=== PATIENT | male | born 1960 | race Caucasian/White ===

== ENCOUNTER 2017-01-05 14:58 | Emergency (ER) | payer BC, MEDICARE ==
[~2017-01-05] VITALS: Ht 167.6 cm; Wt 166.8 kg
[~2017-01-05 14:58] MED LIST: AGGRENOX 200/251 CAP PO; ANUSOL-HC25 MG RE; ASPIRIN EC325 MG PO; ATENOLOL25 MG PO; AVODART0.5 MG OR; BENICAR HCT1 TA1 OR; BUPROPION100 MG PO; CELEBREX200 MG OR; CRESTOR20 MG PO; HYDROCHLOROT12.5 MG PO; LASIX 20 MG TAB20 MG PO; LASIX40 MG OR; LISINOPRIL20 MG PO; LORAZEPAM0.5 MG PO; PROAIR HFA IN; REQUIP0.25 MG OR; RISPERIDONE1 MG PO; SIMVASTATIN20 MG OR; SYMBICORT1 AE1 IN; UROXATRAL10 MG OR; VENLAFAXINE75 MG PO
[2017-01-05] MEDS ORDERED: BISACODYL5 MG PO (15:26)
[2017-01-05] MEDS ORDERED: D32000 UNIT PO (15:27)
[2017-01-05 15:35] LABS: HEMATOCRIT 38.9 % (39.0-50.0); HEMOGLOBIN 12.3 g/dl (14.0-18.0); IMMATURE GRANULOCYTES 0.7 % (0.0-1.0); MEAN CELL VOLUME 77.8 fL CALC (80.0-100.0); MEAN CORPUSCULAR HGB 24.6 pG CALC (26.0-32.0); MEAN CORPUSCULAR HGB CONC 31.6 g/L CALC (32.0-36.0); NEUT# 8.37 thou/uL (1.82-7.42); RED CELL DISTRI WIDTH 16.3 % (11.5-15.5)
[2017-01-05 15:51] LABS: ALBUMIN 4.3 g/dL (3.2-5.0); ALKALINE PHOSPHATASE 87 u/l (38-126); AMYLASE 54 u/l (30-110); ANION GAP 18 (6-22 (CALC)); BILIRUBIN, TOTAL 0.2 mg/dL (0.0-1.4); BUN 16 mg/dL (9-20); BUN/CREATININE RATIO 15 (12-20 (CALC)); CALCIUM 9.6 mg/dL (8.4-10.2); CARBON DIOXIDE 22 mmol/l (22-30); CHLORIDE 108 mmol/l (95-108); CREATININE 1.1 mg/dL (0.7-1.3); GFR > 60 ML/MIN (>=60 (CALC)); GFR FOR AFR.AMER. > 60 ML/MIN (>=60 (CALC)); GLUCOSE 125 mg/dL (75-110); LIPASE 185 u/l (23-300); POTASSIUM 3.9 mmol/l (3.5-5.1); SGOT/AST 27 u/l (17-59); SGPT/ALT 54 u/l (21-72); SODIUM 144 mmol/l (137-146); TOTAL PROTEIN 7.5 g/dL (6.3-8.2)
[2017-01-05 16:00] LABS: MYOGLOBIN 43 ng/mL (0 - 121)
[2017-01-05] MEDS ORDERED: LITHIUM CARB300 MG PO ×2 (16:31)
[2017-01-05] MEDS ORDERED: TRAZODONE50 MG PO (16:32)
[2017-01-05] MEDS ORDERED: LIPITOR20 M1 PO (16:36)
[2017-01-05] MEDS ORDERED: TERAZOSIN1 MG PO (16:36)
[2017-01-05] MEDS ORDERED: PANTOPRAZOLE SO40 MG PO (16:38)
[2017-01-05] MEDS ORDERED: FE TABS325 MG PO (16:39)
[2017-01-05] MEDS ORDERED: METFORMIN500 MG PO (16:39)
[2017-01-05] MEDS ORDERED: AMLODIPINE5 MG PO (16:40)
[2017-01-05] MEDS ORDERED: VESICARE5 M1 PO (16:41)
[2017-01-05] MEDS ORDERED: JANUVIA100 MG PO (16:42)
[2017-01-05] MEDS ORDERED: PLAVIX75 MG PO (16:45)
[2017-01-05 17:32] LABS: TSH, 3RD GENERATION 2.32 uIU/mL (0.47 - 4.68)
[2017-01-05 18:33] LABS: URINE BILIRUBIN - DIPSTICK NEGATIVE (NEGATIVE); URINE BLOOD DIPSTICK NEGATIVE (NEGATIVE); URINE COLOR YELLOW; URINE GLUCOSE - DIPSTICK NEGATIVE (NEGATIVE); URINE KETONE NEGATIVE (NEGATIVE); URINE LEUK ESTERASE NEGATIVE (NEGATIVE); URINE NITRITE - DIPSTICK NEGATIVE (Negative); URINE PROTEIN - DIPSTICK NEGATIVE (NEG-TRACE); URINE SPECIFIC GRAVITY >=1.030; URINE UROBILINOGEN - DIPSTICK 0.2 E.U./dL (0.2)
[2017-01-05 18:34] LABS: URINE CLARITY CLEAR
[2017-01-05 19:21] VITALS: BP 132/75
== END 2017-01-05 19:21 | disposition short-term general hospital (02) | DRG 69 ==
LOC: ED 14:58
PROVIDERS: Emergency Medicine
DX: G45.9 Transient cerebral ischemic attack, unspecified (principal); I10 Essential (primary) hypertension; R06.02 Shortness of breath; R07.9 Chest pain, unspecified; R60.9 Edema, unspecified

== ENCOUNTER 2017-02-26 18:21 | Emergency (ER) | payer BC, MEDICARE ==
[~2017-02-26] VITALS: Ht 167.6 cm; Wt 164.0 kg
[~2017-02-26 18:21] MED LIST changes: +AMLODIPINE5 MG PO; +BISACODYL5 MG PO; +D32000 UNIT PO; +FE TABS325 MG PO; +JANUVIA100 MG PO; +LIPITOR20 M1 PO; +LITHIUM CARB300 MG PO; +METFORMIN500 MG PO; +PANTOPRAZOLE SO40 MG PO; +PLAVIX75 MG PO; +TERAZOSIN1 MG PO; +TRAZODONE50 MG PO; +VESICARE5 M1 PO
[2017-02-26 19:07] LABS: INFLUENZA A NONE DETECTED (NONE DETECT); INFLUENZA B NONE DETECTED (NONE DETECT)
[2017-02-26] MEDS ORDERED: KEFLEX500 M1 PO (19:15)
[2017-02-26] MEDS ORDERED: ROBITUSSIN AC10 ML PO (19:15)
[2017-02-26 19:25] VITALS: BP 159/79
== END 2017-02-26 19:25 | disposition home or self-care (01) | DRG 153 ==
LOC: ED 18:21
PROVIDERS: Emergency Medicine
DX: J06.9 Acute upper respiratory infection, unspecified (principal); R05 Cough; R50.9 Fever, unspecified

== ENCOUNTER 2023-02-22 15:34 | Emergency (ER) | payer OTHER, MEDICARE ==
[~2023-02-22] VITALS: Ht 170.2 cm; Wt 176.0 kg
[2023-02-22] VITALS (8 sets, daily range): BP systolic 126–155; BP diastolic 71–92
[~2023-02-22 15:34] MED LIST changes: +KEFLEX500 M1 PO; +ROBITUSSIN AC10 ML PO
[2023-02-22 16:52] LABS: BASO% 0.2 % (0-3); EOS% 1.4 % (0-8); HEMATOCRIT 41.7 % (39.0-50.0); IMMATURE GRANULOCYTES 0.8 % (0.0-5.0); LYMPH% 23.3 % (15-41); MEAN CELL VOLUME 77.9 fL CALC (80.0-100.0); MEAN CORPUSCULAR HGB 24.3 pG CALC (26.0-32.0); MEAN CORPUSCULAR HGB CONC 31.2 g/dL CAL (32.0-36.0); MONO% 7.1 % (2-13); NEUT# 7.51 thou/uL (1.82-7.42); NEUT% 67.2 % (42-76); RED BLOOD COUNT 5.35 mill/uL (4.70-6.10); RED CELL DISTRI WIDTH 16.2 % (11.5-15.5)
[2023-02-22 17:10] LABS: ALBUMIN 4.3 g/dL (3.2-5.0); ALKALINE PHOSPHATASE 109 u/l (38-126); ANION GAP 14 (6-22 (CALC)); BUN 15 mg/dL (8-23); BUN/CREATININE RATIO 15 (12-20 (CALC)); CARBON DIOXIDE 25 mmol/l (22-30); CHLORIDE 105 mmol/l (95-108); GFR FOR AFR.AMER. > 60 ML/MIN (>=60 (CALC)); GFR OTHER RACES > 60 ML/MIN (>=60 (CALC)); POTASSIUM 3.5 mmol/l (3.5-5.1); SGOT/AST 39 u/l (19-48); SODIUM 140 mmol/l (137-146); TOTAL PROTEIN 7.7 g/dL (6.3-8.2)
[2023-02-22 17:11] LABS: BILIRUBIN, TOTAL 0.4 mg/dL (0.2-1.3)
[2023-02-22] MEDS ORDERED: ASPIRINCHW 81MG PO (19:00)
[2023-02-22] MEDS ORDERED: MIRALAX17 GM PO (20:15)
== END 2023-02-22 20:28 | disposition home or self-care (01) | DRG 379 ==
LOC: ED 15:34
PROVIDERS: Family Medicine
DX: K92.1 Melena (principal); K57.30 Diverticulosis of large intestine without perforation or abscess without bleeding; I10 Essential (primary) hypertension; E11.9 Type 2 diabetes mellitus without complications; E66.01 Morbid (severe) obesity due to excess calories; Z86.73 Personal history of transient ischemic attack (TIA), and cerebral infarction without residual deficits

== ENCOUNTER 2023-08-22 09:41 | Emergency (ER) | payer OTHER, MEDICARE ==
[~2023-08-22] VITALS: Ht 170.2 cm; Wt 172.0 kg
[~2023-08-22 09:41] MED LIST changes: +ASPIRINCHW 81MG PO; +B121000 MC1 PO; +CLONIDINE0.2 MG PO; +COZAAR100 MG PO; +HYDROCHLOROT25 MG PO; +JARDIANCE10 MG PO; +LURASIDONE PO; +METHOCARBAMOL500 MG PO; +MIRALAX17 GM PO; +MOUNJARO7.5 MG SC; +NEURONTIN100 MG PO; +NORMODYNE/TRAN100 MG PO; +POT CHLORIDE20 ME2 PO
[2023-08-22 10:01] VITALS: BP 165/114
[2023-08-22 10:04] VITALS: BP 155/101
[2023-08-22 10:15] VITALS: BP 179/114
[2023-08-22 10:30] VITALS: BP 144/96
[2023-08-22 10:45] LABS: BASO% 0.4 % (0-3); EOS% 2.3 % (0-8); HEMATOCRIT 42.3 % (39.0-50.0); HEMOGLOBIN 13.5 g/dl (14.0-18.0); IMMATURE GRANULOCYTES 0.2 % (0.0-5.0); LYMPH% 20.3 % (15-41); MEAN CELL VOLUME 79.4 fL CALC (80.0-100.0); MEAN CORPUSCULAR HGB 25.3 pG CALC (26.0-32.0); MEAN CORPUSCULAR HGB CONC 31.9 g/dL CAL (32.0-36.0); MONO% 5.4 % (2-13); NEUT# 6.91 thou/uL (1.82-7.42); NEUT% 71.4 % (42-76); RED BLOOD COUNT 5.33 mill/uL (4.70-6.10); RED CELL DISTRI WIDTH 16.1 % (11.5-15.5); URINE BILIRUBIN - DIPSTICK Negative (NEGATIVE); URINE BLOOD DIPSTICK Negative (NEGATIVE); URINE GLUCOSE - DIPSTICK >=1000 mg/dL (NEGATIVE); URINE KETONE Negative (NEGATIVE); URINE LEUK ESTERASE Negative (NEGATIVE); URINE NITRITE - DIPSTICK Negative (Negative); URINE PROTEIN - DIPSTICK Negative (NEG-TRACE); URINE SPECIFIC GRAVITY 1.015; URINE UROBILINOGEN - DIPSTICK 0.2 E.U./dL (0.2)
[2023-08-22 10:48] LABS: URINE COLOR Yellow
[2023-08-22 11:15] LABS: BILIRUBIN, TOTAL 0.5 mg/dL (0.2-1.3); POTASSIUM 4.1 mmol/l (3.5-5.1); TOTAL PROTEIN 7.4 g/dL (6.3-8.2)
[2023-08-22] MEDS ORDERED: HYDROCO/APAP1 TA9 PO (13:08)
[2023-08-22 13:47] VITALS: BP 144/96
== END 2023-08-22 13:53 | disposition home or self-care (01) | DRG 392 ==
LOC: ED 09:41
PROVIDERS: Family Medicine
DX: R10.31 Right lower quadrant pain (principal); R10.11 Right upper quadrant pain; I10 Essential (primary) hypertension; E11.9 Type 2 diabetes mellitus without complications; E66.01 Morbid (severe) obesity due to excess calories; J45.909 Unspecified asthma, uncomplicated; Z86.73 Personal history of transient ischemic attack (TIA), and cerebral infarction without residual deficits; Z79.85 Long-term (current) use of injectable non-insulin antidiabetic drugs

== ENCOUNTER 2024-04-10 00:30 | Emergency (ER) | payer OTHER, MEDICARE ==
[2024-04-10] VITALS (7 sets, daily range): BP systolic 123–169; BP diastolic 63–82
[~2024-04-10] VITALS: Ht 170.2 cm; Wt 177.0 kg
[~2024-04-10 00:30] MED LIST changes: +HYDROCO/APAP1 TA9 PO
[2024-04-10] MEDS ORDERED: HYDROcodone 5 MG/Acetaminophen 325 MG/COMBO PO ONE (00:50)
[2024-04-10] MEDS ORDERED: KETOROLAC TROMETHAMINE 30 MG/ML SDV IM ONE (00:50)
[2024-04-10] MEDS ORDERED: TORADOL PO (03:10)
[2024-04-10] MEDS ORDERED: TYLENOL # 31 TA1 PO (03:10)
== END 2024-04-10 03:24 | disposition home or self-care (01) | DRG 563 ==
LOC: ED 00:30
DX: S39.012A Strain of muscle, fascia and tendon of lower back, initial encounter (principal); S73.101A Unspecified sprain of right hip, initial encounter
CPT/HCPCS: J1100

== ENCOUNTER 2024-04-23 10:27 | Observation (INO) | payer OTHER, MEDICARE ==
[2024-04-23] VITALS (46 sets, daily range): BP systolic 101–168; BP diastolic 63–112
[~2024-04-23] VITALS: Ht 170.2 cm; Wt 177.0 kg
[~2024-04-23 10:27] MED LIST changes: +TORADOL PO; +TYLENOL # 31 TA1 PO
[2024-04-23 11:59] LABS: BASO% 0.3 % (0-3); EOS% 1.5 % (0-8); HEMATOCRIT 45.9 % (39.0-50.0); HEMOGLOBIN 14.4 g/dl (14.0-18.0); IMMATURE GRANULOCYTES 0.3 % (0.0-5.0); LYMPH% 19.7 % (15-41); MEAN CELL VOLUME 79.3 fL CALC (80.0-100.0); MEAN CORPUSCULAR HGB 24.9 pG CALC (26.0-32.0); MEAN CORPUSCULAR HGB CONC 31.4 g/dL CAL (32.0-36.0); MONO% 6.1 % (2-13); NEUT# 7.48 thou/uL (1.82-7.42); NEUT% 72.1 % (42-76); RED BLOOD COUNT 5.79 mill/uL (4.70-6.10); RED CELL DISTRI WIDTH 15.3 % (11.5-15.5)
[2024-04-23] MEDS ORDERED: CLOPIDOGREL BISULFATE 75 MG/TAB TAB PO ONE (12:20)
[2024-04-23 12:21] LABS: ALKALINE PHOSPHATASE 111 u/l (38-126); ANION GAP 13 (6-22 (CALC)); BILIRUBIN, TOTAL 0.7 mg/dL (0.2-1.3); BUN 14 mg/dL (8-23); BUN/CREATININE RATIO 15 (12-20 (CALC)); CALCULATED LDLCHOLESTEROL 49 mg/dL (62-129 (CALC)); CARBON DIOXIDE 27 mmol/l (22-30); CHLORIDE 103 mmol/l (95-108); CHOLESTEROL HDL RATIO 2.1 (<4.4 (CALC)); CREATININE 0.9 mg/dL (0.7-1.3); ESTIMATED GFR 96 ML/MIN (>=90 (CALC)); HDL CHOLESTEROL 71 mg/dL (39.0-59.0); POTASSIUM 4.2 mmol/l (3.5-5.1); SGOT/AST 50 u/l (19-48); SODIUM 139 mmol/l (137-146); TOTAL CHOLESTEROL 146 mg/dl (0-199); TOTAL TRIGLYCERIDES 135 mg/dl (0-149); VLDL CHOLESTROL 27 mg/dl (4-45 (CALC))
[2024-04-23 12:23] LABS: PROTHROMBIN TIME 10.5 SECONDS (9.0-12.5)
[2024-04-23] MEDS ORDERED: NORVASC10 M1 PO (12:33)
[2024-04-23] MEDS ORDERED: LIPITOR80 M1 PO (12:34)
[2024-04-23] MEDS ORDERED: TRAZODONE100 MG PO (12:35)
[2024-04-23] MEDS ORDERED: ATIVAN1 M1 PO (12:36)
[2024-04-23] MEDS ORDERED: NEURONTIN100 MG PO (12:39)
[2024-04-23] MEDS ORDERED: MOUNJARO15 M1 SC (12:41)
[2024-04-23] MEDS ORDERED: VENLAFAXINE H37.5 M2 PO (12:46)
[2024-04-23] MEDS ORDERED: STRIVERDI2.5 MCG/AC IN (12:47)
[2024-04-23] MEDS ORDERED: TAMSULOSIN0.4 MG PO (12:48)
[2024-04-23] MEDS ORDERED: LANTUS100 UNIT PO (12:49)
[2024-04-23] MEDS ORDERED: LANTUS100 UNIT SC (12:50)
[2024-04-23] MEDS ORDERED: OS-CAL 500500 M1 PO (12:52)
[2024-04-23] MEDS ORDERED: FAMOTIDINE20 M1 PO (12:57)
[2024-04-23] MEDS ORDERED: VITAMIN D PO (12:58)
[2024-04-23] MEDS ORDERED: FOLIC ACID1 MG PO (12:59)
[2024-04-23] MEDS ORDERED: VRAYLAR1.5 MG PO (12:59)
[2024-04-23] MEDS ORDERED: VITAMIN B-2100 MG PO (13:00)
[2024-04-23 13:30] LABS: URINE BILIRUBIN - DIPSTICK Negative (NEGATIVE); URINE BLOOD DIPSTICK Negative (NEGATIVE); URINE GLUCOSE - DIPSTICK 500 mg/dL (NEGATIVE); URINE KETONE Negative (NEGATIVE); URINE LEUK ESTERASE Negative (NEGATIVE); URINE NITRITE - DIPSTICK Negative (Negative); URINE PH 5.5 (4.5-8.0); URINE PROTEIN - DIPSTICK 30 mg/dL (NEG-TRACE); URINE SPECIFIC GRAVITY 1.015; URINE UROBILINOGEN - DIPSTICK 0.2 E.U./dL (0.2)
[2024-04-23 13:31] LABS: URINE COLOR Yellow
[2024-04-23 13:41] LABS: URINE RBC 0-2 RBC/hpf (0-5); URINE SQUAMOUS EPITHELIAL CELL RARE EPI/hpf (0-FEW); URINE WBC 0-2 WBC/hpf (0-5)
[2024-04-23] MEDS ORDERED: DEXTROSE 250 ML IV PRN (15:00)
[2024-04-23] MEDS ORDERED: ACETAMINOPHEN 325 MG/TAB PO PRN (15:00)
[2024-04-23] MEDS ORDERED: MAGNESIUM HYDROXIDE 30 ML UDC PO PRN (15:00)
[2024-04-23] MEDS ORDERED: LORazepam 1 MG/TAB PO PRN (15:10)
[2024-04-23] MEDS ORDERED: INSULIN LISPRO 100 UNITS/ML ML SC SCH (17:00)
[2024-04-23] MEDS ORDERED: ATORVASTATIN CALCIUM 40 MG/TAB PO SCH (17:00)
[2024-04-23] MEDS ORDERED: traZODone HCL 50 MG/TAB PO SCH (21:00)
[2024-04-23] MEDS ORDERED: GABAPENTIN 100 MG/CAP PO SCH (21:00)
[2024-04-23] MEDS ORDERED: ENOXAPARIN SODIUM 40 MG/0.4 ML SYR SC SCH (21:00)
[2024-04-23] MEDS ORDERED: ACETAMINOPHEN 500 MG TAB PO SCH (22:00)
[2024-04-24] VITALS (55 sets, daily range): BP systolic 105–197; BP diastolic 57–120
[2024-04-24] MEDS ORDERED: TAMSULOSIN HCL 0.4 MG CAP PO SCH (09:00)
[2024-04-24] MEDS ORDERED: PANTOPRAZOLE SODIUM Sesquihydr 40 MG/TAB PO SCH (09:00)
[2024-04-24] MEDS ORDERED: CLOPIDOGREL BISULFATE 75 MG/TAB TAB PO SCH (09:00)
[2024-04-24] MEDS ORDERED: INSULIN GLARGINE 100 UNITS/ML SC SCH (09:00)
[2024-04-24] MEDS ORDERED: ASPIRIN EC 81 MG/TAB PO SCH (09:00)
[2024-04-24] MEDS ORDERED: FAMOTIDINE 20 MG/TAB PO SCH (09:00)
[2024-04-24] MEDS ORDERED: PLAVIX75 MG PO (12:25)
[2024-04-24] MEDS ORDERED: LABETALOL HCL 100 MG/TAB PO SCH (13:00)
[2024-04-24] MEDS ORDERED: LOSARTAN Potassium 50 MG/TAB PO SCH (13:00)
== END 2024-04-24 13:45 | disposition home or self-care (01) | DRG 149 ==
LOC: ED 10:27 → ED-I 14:36 → ED 14:46 → ED-I 14:47
PROVIDERS: Family Medicine; ADMIT Internal Medicine; ATTEND Internal Medicine
DX: R42 Dizziness and giddiness (principal); E66.2 Morbid (severe) obesity with alveolar hypoventilation; H53.8 Other visual disturbances; R07.9 Chest pain, unspecified; I10 Essential (primary) hypertension; E11.9 Type 2 diabetes mellitus without complications; I27.20 Pulmonary hypertension, unspecified; I44.7 Left bundle-branch block, unspecified; R25.1 Tremor, unspecified; E78.5 Hyperlipidemia, unspecified; J45.909 Unspecified asthma, uncomplicated; I25.10 Atherosclerotic heart disease of native coronary artery without angina pectoris; F41.9 Anxiety disorder, unspecified; Z79.4 Long term (current) use of insulin; Z86.73 Personal history of transient ischemic attack (TIA), and cerebral infarction without residual deficits; Z79.85 Long-term (current) use of injectable non-insulin antidiabetic drugs; Z79.84 Long term (current) use of oral hypoglycemic drugs; Z79.82 Long term (current) use of aspirin
CPT/HCPCS: J1650; J1815; Q9967